=== PATIENT | male | born 1990 | race Native Hawaiian/Other Pacific Islander ===

== ENCOUNTER 2017-03-26 03:42 | Emergency (ER) | payer SELFPAY ==
[~2017-03-26] VITALS: Ht 177.8 cm; Wt 80.8 kg
[~2017-03-26 03:42] MED LIST: AUGM875T PO; HYDR-3533 PO; IBUP800T23 PO
[2017-03-26 03:48] VITALS: BP 146/92; PULSE 86; RESP 16; TEMP 97.5; O2SAT 97
[2017-03-26] MEDS ORDERED: TYLE325T PO (04:00)
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
[2017-03-26] MEDS ORDERED: IBUP800T23 PO (05:12)
== END 2017-03-26 05:27 | disposition home or self-care (01) ==
LOC: PHED 03:42
DX: S00.83XA Contusion of other part of head, initial encounter (principal); S20.212A Contusion of left front wall of thorax, initial encounter; M24.411 Recurrent dislocation, right shoulder; S44.31XA Injury of axillary nerve, right arm, initial encounter; F17.200 Nicotine dependence, unspecified, uncomplicated; Y04.0XXA Assault by unarmed brawl or fight, initial encounter
CPT/HCPCS: 70486; 71020; 71101; 73030

== ENCOUNTER 2017-07-18 18:12 | Emergency (ER) | payer OTHER ==
[~2017-07-18] VITALS: Ht 177.8 cm; Wt 75.0 kg
[~2017-07-18 18:12] MED LIST changes: -AUGM875T PO; -HYDR-3533 PO; +IBUP1TAB7 PO; -IBUP800T23 PO; +TYLE325T PO
[2017-07-18 18:15] VITALS: BP 141/91; PULSE 89; RESP 13; TEMP 98.4; O2SAT 99
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
[2017-07-18] MEDS ORDERED: IBUPROFEN 800 MG TAB PO ONE (20:00)
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
[2017-07-18] MEDS ORDERED: TRAM50 PO (20:36)
[2017-07-18] MEDS ORDERED: DICL75TA PO (20:36)
[2017-07-18] MEDS ORDERED: traMADol HCL 50 MG TAB PO ONE (20:45)
== END 2017-07-18 21:04 | disposition home or self-care (01) ==
LOC: NEPK 18:12
DX: M24.411 Recurrent dislocation, right shoulder (principal); V44.9XXA Unspecified car occupant injured in collision with heavy transport vehicle or bus in traffic accident, initial encounter
CPT/HCPCS: 73030; 99284